=== PATIENT | male | born 1980 | race Caucasian/White ===

== ENCOUNTER 2018-11-06 21:37 | Emergency (ER) | payer MEDICARE, OTHER ==
[~2018-11-06] VITALS: Ht 172.7 cm; Wt 149.7 kg
[2018-11-06] MEDS ORDERED: BENADRYL25 M3 PO (21:42)
[2018-11-06] MEDS ORDERED: DIURIL25 MG ORAL (21:42)
[2018-11-06] MEDS ORDERED: LORAZEPAM1 MG ORAL (21:42)
[2018-11-06] MEDS ORDERED: OLANZAPINE10 MG ORAL (21:42)
[2018-11-06] MEDS ORDERED: AMBIEN5 MG ORAL (21:42)
[2018-11-06] MEDS ORDERED: LOSARTAN POTAS100 MG ORAL (21:42)
[2018-11-06] MEDS ORDERED: SERTRALINE HCL25 MG ORAL (21:42)
[2018-11-06] MEDS ORDERED: ATORVASTATIN CA20 MG ORAL (21:42)
[2018-11-06] MEDS ORDERED: TRIUMEQ 600-501 EACH PO (21:42)
--- NOTE | 2018-11-06 21:45 | NUR ---
ED Nurse Note: pt brought in by FATIMAH c/o sob and asthma, pt states he started having sx this morning but ran out of inhaler and progressively worsen, pt AA&ox4, gcs=15, skin warm and dry, tachypnea, LS=wheezing on expiratory to auscultation, -n/v/d, ambulates w/ steady gait, Sinus tach on school lunch monitor, will cont monitor. RT contacted, ERMD aware pt's condition
[2018-11-06] MEDS: Ipratropium 0.02% Inh Soln 2.5ml UD HHN SCH ×3 (22:03→22:31)
[2018-11-06] MEDS: Levalbuterol Inh UD 1.25mg/0.5ml HHN SCH ×4 (22:03→22:45)
--- NOTE | 2018-11-06 22:46 | NUR ---
ED Nurse Note: pt reports breathing is better, noted decrease in wheezing. sinus tach on hall monitor, RR16, o2sat 98 on RA, will cont monitor. Spouse member at the bedside.
[2018-11-06] MEDS ORDERED: ALBUTEROL SULF8.5 GM INH (23:36)
[2018-11-06] MEDS ORDERED: AMOXICILLIN500 MG ORAL (23:36)
[2018-11-06] MEDS ORDERED: PREDNISONE20 MG ORAL (23:36)
[2018-11-06] MEDS ORDERED: PROMETHAZINE-C118 M1 ORAL (23:36)
[2018-11-06 23:41] VITALS: BP 154/98
--- NOTE | 2018-11-06 23:42 | NUR ---
ED Nurse Note: pt cleared to be d/c per ERMD, pt d/c instruction, aftercare instruction and prescription provided per ERMD order, pt wristband removed, pt advised to follow up with pcp or return to ED if s/s worsen or new s/s develop, pt education done via discussion and hand out. pt verbalized understanding and agrees with plan. pt VSS, ambulatory w/ steady gait, airway intact, resp even and unlabored. spouse member accompanied pt.
--- NOTE | 2018-11-07 01:06 | Emergency Room Report ---
History of Present Illness General Chief Complaint: Asthma Source: Patient Present Illness HPI 38-year-old male presents ED for evaluation. Brought in by EMS for asthma exacerbation. Does increase shortness of breath 1 day. Also notes cough productive with yellowish phlegm. History of asthma. States his inhaler was not helping. Given breathing treatments by EMS. States he was feeling somewhat better. Admits to smoking. Denies drug use. Denies sick contacts or recent travel. Denies fevers chills. No other aggravating relieving factors. Denies any other associated symptoms Allergies: Coded Allergies: No Known Allergies (Unverified , 11/06/18) Patient History Past Medical History: HTN, asthma Past Surgical History: none Pertinent Family History: none Social History: Reports: smoking; Denies: alcohol use, drug use Immunizations: UTD Reviewed Nursing Documentation: PMH: Agreed; PSxH: Agreed Nursing Documentation-PMH Past Medical History: No History, Except For Hx Cardiac Problems: No - HIV Hx Hypertension: Yes Hx Asthma: Yes Review of Systems All Other Systems: negative except mentioned in HPI Physical Exam Vital Signs Date Time Temp Pulse Resp B/P (MAP) Pulse Ox O2 Delivery O2 Flow Rate FiO2 11/06/18 21:34 98.4 126 20 184/130 95 Non-Rebreather 15.0 11/06/18 22:03 21 Sp02 EP Interpretation: reviewed, normal General Appearance: no apparent distress, alert, GCS 15, non-toxic, obese Head: normocephalic, atraumatic Eyes: bilateral eye normal inspection, bilateral eye PERRL ENT: hearing grossly normal, normal pharynx, no angioedema, normal voice Neck: full range of motion, supple/symm/no masses Respiratory: chest non-tender, normal breath sounds, speaking full sentences, wheezing Cardiovascular #1: no edema, tachycardia Cardiovascular #2: 2+ carotid (R), 2+ carotid (L), 2+ radial (R), 2+ radial (L) , 2+ dorsalis pedis (R), 2+ dorsalis pedis (L) Gastrointestinal: normal bowel sounds, non tender, soft, non-distended, no guarding, no rebound Rectal: deferred Genitourinary: normal inspection, no CVA tenderness Musculoskeletal: back normal, gait/station normal, normal range of motion, non- tender Neurologic: alert, oriented x3, responsive, motor strength/tone normal, sensory intact, speech normal Psychiatric: judgement/insight normal, memory normal, mood/affect normal, no suicidal/homicidal ideation Reflexes: 3+ bicep (R), 3+ bicep (L), 3+ tricep (R), 3+ tricep (L), 3+ knee (R) , 3+ knee (L) Skin: normal color, no rash, warm/dry, well hydrated Lymphatic: no adenopathy Medical Decision Making Diagnostic Impression: Primary Impression: Asthma attack Qualified Codes: J45.901 - Unspecified asthma with (acute) exacerbation ER Course Hospital Course 38-year-old male presents to ED complaining of cough, wheezing Differential diagnoses include: URI, bronchitis, asthma/COPD, pneumonia Clinical course Patient placed on stretcher. After initial history, physical exam reveals a male in no acute distress. Bilateral TM unremarkable. No pharyngeal erythema. No tonsillar exudates. No lymphadenopathy. Mild wheezing noted on exam, no signs of respiratory distress or retractions. Patient given Predone and xopenex /atrovent treatment in ED with symptoms improved. On reassessment wheezing resolved. Initially tachycardic which resolved. Discussed findings with patient. Safe for discharge with close outpatient follow-up. Given history of smoking and productive cough we'll treat with antibiotics Patient states he has a PMD Diagnosis - asthma attack Stable and discharged home with prescriptions for albuterol, prednisone, promethazine/codeine, amoxicillin. Instructed to followup with PMD. Return to ED if symptoms recur or worsen Last Vital Signs Date Time Temp Pulse Resp B/P (MAP) Pulse Ox O2 Delivery O2 Flow Rate FiO2 11/06/18 23:41 98.4 110 18 154/98 98 Room Air 11/06/18 22:41 21 11/06/18 21:41 15.0 Status: improved Disposition: HOME, SELF-CARE Condition: Stable Scripts Amoxicillin* (AMOXIL*) 500 Mg Capsule 500 MG ORAL THREE TIMES A DAY, #21 CAP Prov: Asaf Henry MD 11/06/18 Codeine/Promethazine Hcl* (PROMETHAZINE-CODEINE SYRUP*) 118 Ml Syrup 5 ML ORAL Q6H PRN for For Cough, #118 ML 0 Refills Prov: Asaf Henry MD 11/06/18 Albuterol Sulfate* (ALBUTEROL SULFATE MDI*) 8.5 Gm Hfa.aer.ad 2 PUFF INH Q6H, #1 EA 0 Refills Prov: Asaf Henry MD 11/06/18 Prednisone* (PREDNISONE*) 20 Mg Tablet 40 MG ORAL DAILY, #10 TAB Prov: Asaf Henry MD 11/06/18 Referrals: NOT CHOSEN IPA/,REFERRING Patient Instructions: Asthma, Adult Asaf Henry MD Nov 07, 2018 01:06
== END 2018-11-06 23:45 | disposition home or self-care (01) ==
LOC: EDBD 21:37 → EMR 22:02
DX: J45.901 Unspecified asthma with (acute) exacerbation (principal); I10 Essential (primary) hypertension
CPT/HCPCS: 94640; 99283; J7512; J7644